=== PATIENT | female | born 1940 ===

== ENCOUNTER 2025-08-11 14:15 | Emergency (ER) | payer OTHER ==
[~2025-08-11] VITALS: Ht 157.5 cm; Wt 59.0 kg
[2025-08-11] MEDS ORDERED: ATORVASTATIN CA10 MG PO (14:26)
[2025-08-11] MEDS ORDERED: LEVOTHYROXINE25 MCG (14:26)
[2025-08-11] MEDS ORDERED: 0.9 % SODIUM CHLORIDE 500 ML IV ONE (16:15)
[2025-08-11] MEDS ORDERED: FAMOTIDINE/PF 20 MG/2 ML VIAL IV ONE (16:15)
[2025-08-11 17:03] LABS: BASO % 0.7 % (0.1-1.2); EOS # 0.12 (0.04-0.54); EOS % 2.2 % (0.7-7.0); LYMPH # 1.68 (1.18-3.74); LYMPH % 30.9 % (19.3-53.1); MEAN PLATELET VOLUME 10.10 fl (9.4-12.4); MONO # 0.55 (0.24-0.82); MONO % 10.1 % (4.7-12.5); NEUT # 3.04 (1.56-6.13); NEUT % 55.9 % (34.0-71.1); RED CELL DISTRIBUTION WIDTH 13.1 % (11.6-14.4)
[2025-08-11 17:37] LABS: ALT/SGPT 22.0 U/L (12-78); AST/SGOT 20.0 U/L (15-37); BILIRUBIN TOTAL 0.57 mg/dL (0.3-1.2); BUN CREA RATIO 25.0 (7.0-25.0); CREATININE SERUM 0.67 mg/dL (0.55-1.02); GFR 83.65; GLOBULINA 3.3 G/DL (2.4-3.5); GLUCOSE FASTING 85.0 mg/dL (65-100); OSMOLALITY SERUM 286.0 MOSM/KG (275-295)
[2025-08-11 18:07] LABS: URINE APPEARANCE Clear; URINE BILIRRUBIN Negative (NEGATIVE); URINE BLOOD Negative; URINE COLOR Yellow; URINE GLUCOSE Negative (NEGATIVE); URINE KETONE Negative (NEGATIVE); URINE LEUKOCYTE Negative; URINE NITRATE Negative; URINE PROTEIN Negative (NEGATIVE); URINE UROBILINOGEN 0.2 E.U./dl
[2025-08-11 18:09] LABS: URINE WBC 5.8 uL (0.0-23.2)
[2025-08-11 18:20] LABS: URINE BACTERIA 2.3 uL (0.0-1933); URINE CAST 0.00 uL (0.0-1.40); URINE EPITHELIAL CELLS 1.3 uL (0.0-38.8); URINE RBC 1.6 uL (0.0-20.8)
[2025-08-11] MEDS ORDERED: MIRALAX17 GM PO (18:36)
== END 2025-08-11 19:29 ==
LOC: ER 15:16
PROVIDERS: General Practice
DX: K57.30 Diverticulosis of large intestine without perforation or abscess without bleeding (principal); E03.8 Other specified hypothyroidism; G30.8 Other Alzheimer's disease; F02.80 Dementia in other diseases classified elsewhere, unspecified severity, without behavioral disturbance, psychotic disturbance, mood disturbance, and anxiety; Z88.6 Allergy status to analgesic agent
CPT/HCPCS: 36415; 74176; 96365; 96366; 99284; J3490; J7042